=== PATIENT | female | born 1950 | race Caucasian/White ===

== ENCOUNTER 2019-06-30 18:03 | Emergency (ER) | payer MEDICARE ==
[2019-06-30] MEDS ORDERED: ORPHENADRINE CITRATE 30 MG/ML ML ONE (18:43)
[2019-06-30] MEDS ORDERED: LIDOCAINE 5% TOPICAL PATCH TP ONE (18:43)
[2019-06-30] MEDS ORDERED: KETOROLAC TROMETHAMINE 30MG/ML ONE (18:43)
== END 2019-06-30 20:30 | disposition home or self-care (01) ==
LOC: EDH 18:03
DX: M54.41 Lumbago with sciatica, right side (principal); M62.838 Other muscle spasm; I10 Essential (primary) hypertension; Z90.710 Acquired absence of both cervix and uterus; Z90.49 Acquired absence of other specified parts of digestive tract
CPT/HCPCS: 72100; 96372 ×2; 99284; J1885; J2360